=== PATIENT | male | born 1955 | race Caucasian/White ===

== ENCOUNTER 2021-09-11 11:55 | Inpatient (IN) | payer MEDICARE ==
[~2021-09-11 11:55] MED LIST: ISOVUE-370 76%-LOCM 1 ML ONE
[2021-09-11 12:31] LABS: #Lymphocytes 2.1 thou/uL (1.20-3.40); #Monocytes 0.8 thou/uL (0.11-0.59); #Neutrophils 6.9 thou/uL (1.40-6.50); %Basophils 0.4 % (0.0-1.0); %Eosinophils 0.1 % (0.0-10.0); %Lymphocytes 21.5 % (21.0-51.0); %Monocytes 7.7 % (0.0-10.0); %Neutrophils 70.2 % (42.0-75.0); Hemoglobin 14.2 g/dL (14.0-18.0); Mean Corpuscular HGB CONC 32.2 g/dL (32.0-36.0); Mean Corpuscular Hemoglobin 29.7 pg (27.0-31.0); Mean Corpuscular Volume 92.3 fL (78.0-98.0); Platelet Count 307 thou/uL (130-400); RBC Distribution Width 12.9 % (11.5-14.5); Red Blood Cell (RBC) Count 4.77 mill/uL (4.70-6.10); White Blood Cell (WBC) Count 9.8 thou/uL (4.8-10.8)
[2021-09-11] MEDS ORDERED: Dexamethasone 10 MG/ML VIAL ONE (12:44)
[2021-09-11 12:48] LABS: ALT (SGPT) 13 U/L (8-55); AST (SGOT) 18 U/L (5-34); Albumin 3.5 g/dL (3.4-4.8); Alkaline Phosphatase 151 U/L (40-110); Anion Gap 16 mmol/L (10-20); BUN (Urea Nitrogen) 10 mg/dL (8.4-25.7); Bilirubin, Total 0.6 mg/dL (0.2-1.2); Calc. Creatinine Clearance 0 mL/min (70-130); Calcium 9.4 mg/dL (7.8-10.44); Carbon Dioxide 24 mmol/L (23-31); Chloride 100 mmol/L (98-107); Estimated GFR 101; Globulin 4.1 g/dL (2.4-3.5); Glucose 103 mg/dL (80-115); Potassium 4.6 mmol/L (3.5-5.1); Protein, Total 7.6 g/dL (5.8-8.1); Sodium 135 mmol/L (136-145)
[2021-09-11] MEDS ORDERED: Dexamethasone 4 mg/ml Vial SLOW IVP PRN (15:36)
[2021-09-11 16:07] VITALS: BMI 18.6
[2021-09-11] MEDS ORDERED: Acetaminophen 325 MG TAB PO PRN (17:22)
[2021-09-11] MEDS: Dexamethasone 4 mg/ml Vial SLOW IVP SCH ×2 (18:43→23:40)
[2021-09-12] MEDS: Dexamethasone 4 mg/ml Vial SLOW IVP SCH ×4 (05:24→23:42)
[2021-09-12] MEDS: Pantoprazole 40 MG VIAL IVP SCH (08:18)
[2021-09-13] MEDS: Dexamethasone 4 mg/ml Vial SLOW IVP SCH ×4 (05:38→23:48)
[2021-09-13] MEDS: Pantoprazole 40 MG VIAL IVP SCH (08:30)
[2021-09-13 09:08] LABS: Prothrombin Time 13.6 sec (12.0-14.7)
[2021-09-13 09:09] LABS: PTT 29.8 sec (22.9-36.1)
[2021-09-13] MEDS: Melatonin 3 MG TAB PO PRN (20:55)
[2021-09-14] MEDS: Dexamethasone 4 mg/ml Vial SLOW IVP SCH ×4 (05:53→23:07)
[2021-09-14] MEDS: Pantoprazole 40 MG VIAL IVP SCH (08:54)
[2021-09-14] MEDS ORDERED: Docusate 100 MG CAP PO SCH (10:15)
[2021-09-14] MEDS ORDERED: Polyethylene Glycol 3350 17 GM Packet PO SCH (10:15)
[2021-09-14] MEDS ORDERED: Docusate 100 MG CAP PO PRN (10:46)
[2021-09-14] MEDS ORDERED: Polyethylene Glycol 3350 17 GM Packet PO PRN (10:46)
[2021-09-14] MEDS: Melatonin 3 MG TAB PO PRN (23:07)
[2021-09-15] MEDS: Dexamethasone 4 mg/ml Vial SLOW IVP SCH ×3 (05:44→22:15)
[2021-09-15] MEDS: Pantoprazole 40 MG VIAL IVP SCH (09:44)
[2021-09-16] MEDS: Dexamethasone 4 mg/ml Vial SLOW IVP SCH ×3 (06:08→21:39)
[2021-09-16] MEDS: Pantoprazole 40 MG VIAL IVP SCH (07:57)
[2021-09-17] MEDS: Dexamethasone 4 mg/ml Vial SLOW IVP SCH ×3 (06:05→22:00)
[2021-09-17] MEDS: Pantoprazole 40 MG VIAL IVP SCH (09:09)
[2021-09-17] MEDS ORDERED: Acetaminophen 500 MG TAB PO PRN (12:33)
[2021-09-17] MEDS ORDERED: Sodium Chloride 0.9% 1,000 ML IV SCH (12:45)
[2021-09-18] MEDS: Dexamethasone 4 mg/ml Vial SLOW IVP SCH ×2 (06:03→13:38)
[2021-09-18] MEDS: Pantoprazole 40 MG VIAL IVP SCH (08:13)
[2021-09-18 14:12] VITALS: BP 113/69; TEMP 97.9
== END 2021-09-18 14:06 | disposition home or self-care (01) | DRG 70 ==
LOC: ERS 11:55 → NEURO 13:42
PROVIDERS: ADMIT Family Medicine; ATTEND Family Medicine
PROC: 0BBF3ZX Excision of Right Lower Lung Lobe, Percutaneous Approach, Diagnostic (ICD-10-PCS; principal; 2021-09-17)
DX: G93.89 Other specified disorders of brain (principal); G93.41 Metabolic encephalopathy; G93.6 Cerebral edema; E43 Unspecified severe protein-calorie malnutrition; Z68.1 Body mass index [BMI] 19.9 or less, adult; Z20.822 Contact with and (suspected) exposure to COVID-19; Z60.2 Problems related to living alone; K59.00 Constipation, unspecified; R91.8 Other nonspecific abnormal finding of lung field; R00.1 Bradycardia, unspecified; I49.1 Atrial premature depolarization; Z87.891 Personal history of nicotine dependence; Z80.9 Family history of malignant neoplasm, unspecified
CPT/HCPCS: 32408; 36415; 70553; 71045; 71260; 74177; 77012; 80053; 85025; 85610; 85730; 88305; 88333; 88341; 88342; 96374; C9113; J1100; Q9966; U0003; U0005

== ENCOUNTER 2021-09-20 14:18 | Inpatient (IN) | payer MEDICARE ==
[2021-09-20] MEDS ORDERED: diphenhydrAMINE 50 MG/ML VIAL IVP PRN (14:54)
[2021-09-20] MEDS ORDERED: Promethazine 25 MG TAB PO PRN (14:54)
[2021-09-20] MEDS ORDERED: Ondansetron PF 4 MG/2 ML Vial IVP PRN (14:54)
[2021-09-20] MEDS ORDERED: Morphine 2 MG/ML VIAL SLOW IVP PRN (14:54)
[2021-09-20] MEDS ORDERED: Mag-Al 1200 mg/1200 mg/30 ML UDCUP PO PRN (14:54)
[2021-09-20 15:15] LABS: #Basophils 0.1 thou/uL (0.0-0.2); #Lymphocytes 1.8 thou/uL (1.20-3.40); #Monocytes 1.4 thou/uL (0.11-0.59); #Neutrophils 14.7 thou/uL (1.40-6.50); %Basophils 0.3 % (0.0-1.0); %Eosinophils 0.1 % (0.0-10.0); %Lymphocytes 9.9 % (21.0-51.0); %Monocytes 7.7 % (0.0-10.0); %Neutrophils 81.9 % (42.0-75.0); Mean Corpuscular HGB CONC 34.4 g/dL (32.0-36.0); Mean Corpuscular Hemoglobin 31.5 pg (27.0-31.0); Mean Corpuscular Volume 91.6 fL (78.0-98.0); Mean Platelet Volume 8.2 fL (7.4-10.4); Platelet Count 250 thou/uL (130-400); RBC Distribution Width 13.6 % (11.5-14.5); Red Blood Cell (RBC) Count 4.77 mill/uL (4.70-6.10); White Blood Cell (WBC) Count 17.9 thou/uL (4.8-10.8)
[2021-09-20 15:39] LABS: ALT (SGPT) 62 U/L (8-55); AST (SGOT) 24 U/L (5-34); Albumin 3.6 g/dL (3.4-4.8); Alkaline Phosphatase 112 U/L (40-110); Anion Gap 11 mmol/L (10-20); BUN (Urea Nitrogen) 25 mg/dL (8.4-25.7); Bilirubin, Total 0.5 mg/dL (0.2-1.2); Calc. Creatinine Clearance 0 mL/min (70-130); Carbon Dioxide 27 mmol/L (23-31); Chloride 101 mmol/L (98-107); Estimated GFR 95; Globulin 3.2 g/dL (2.4-3.5); Glucose 105 mg/dL (80-115); Protein, Total 6.8 g/dL (5.8-8.1); Sodium 135 mmol/L (136-145)
[2021-09-20 16:41] LABS: SARS-CoV-2 NAA Rapid Test Not Detected (NotDetected)
[2021-09-20] MEDS: Dexamethasone 4 mg/ml Vial SLOW IVP SCH (17:28)
[2021-09-21] MEDS: Dexamethasone 4 mg/ml Vial SLOW IVP SCH ×3 (04:53→23:14)
[2021-09-21] MEDS ORDERED: ceFAZolin 2 GM/Dextrose 50 ML 2 GM in Premix Bag 1 BAG IVPB SCH ×2 (11:00→22:00)
[2021-09-21] MEDS ORDERED: Rocuronium Bromide 10 MG/ML (10ML VIAL) ONE (13:07)
[2021-09-21] MEDS ORDERED: Phenylephrine 10 MG/ML VIAL ONE (13:07)
[2021-09-21] MEDS ORDERED: Lidocaine 1% PF 5 ML VIAL ONE (13:07)
[2021-09-21] MEDS ORDERED: Labetalol HCl 100 MG/20 ML VIAL ONE ×2 (13:07→15:57)
[2021-09-21] MEDS ORDERED: PROPOFOL 200 MG/20 ML VIAL ONE (13:07)
[2021-09-21] MEDS ORDERED: manNITOL 20% 500 ML ONE (13:57)
[2021-09-21] MEDS ORDERED: SUGAMMADEX SODIUM 200 MG/2 ML VIAL ONE (14:49)
[2021-09-21] MEDS ORDERED: Meperidine HCl/PF 25 MG/ML VIAL SLOW IVP PRN (14:53)
[2021-09-21] MEDS ORDERED: Promethazine HCl 25 MG/ML VIAL IVPB PRN (14:53)
[2021-09-21] MEDS ORDERED: HYDROmorphone 2 MG/ML VIAL SLOW IVP PRN (14:53)
[2021-09-21] MEDS ORDERED: fentaNYL Citrate/PF 100 MCG/2 ML SYRINGE ONE ×2 (15:07→18:11)
[2021-09-21] MEDS ORDERED: hydrALAZINE 20 MG/ML VIAL SLOW IVP PRN (15:58)
[2021-09-21] MEDS ORDERED: Labetalol HCl 100 MG/20 ML VIAL SLOW IVP PRN (15:59)
[2021-09-21] MEDS ORDERED: hydrALAZINE 20 MG/ML VIAL ONE (16:33)
[2021-09-21] MEDS: CEFAZOLIN 2 GM in Sodium Chloride 0.9% 100 ML IVPB SCH (23:14)
[2021-09-21] MEDS: Acetaminophen/Codeine 30-300mg Tablet PO PRN (23:46)
[2021-09-22] MEDS: Dexamethasone 4 mg/ml Vial SLOW IVP SCH ×3 (04:26→20:19)
[2021-09-22] MEDS: CEFAZOLIN 2 GM in Sodium Chloride 0.9% 100 ML IVPB SCH (05:08)
[2021-09-22 13:07] LABS: Bacteria/HPF None Seen HPF (None Seen); Bilirubin Negative (Negative); Blood, Urine Negative (Negative); Clarity Clear (Clear); Glucose, Urine (Dipstick) Normal (Negative); Ketone, Urine Negative (Negative); Leukocyte Negative Leu/uL (Negative); Nitrite Negative (Negative); Protein, Urine (Dipstick) Negative (Neg-Trace); RBC/HPF 0-3 HPF (0-3); Specific Gravity, Urine 1.011 (1.002-1.036); Squamous Epithelial None Seen HPF (0-3); Urobilinogen Normal mg/dL (Less than 2); WBC/HPF 0-3 HPF (0-3); pH, Urine 6.5 (5.0-9.0)
[2021-09-22 13:23] LABS: Urine Culture Reflex No No
[2021-09-22] MEDS: Acetaminophen/Codeine 30-300mg Tablet PO PRN (20:25)
[2021-09-23] MEDS: Dexamethasone 4 mg/ml Vial SLOW IVP SCH (03:45)
[2021-09-23 05:45] LABS: #Lymphocytes 1.4 thou/uL (1.20-3.40); #Neutrophils 13.5 thou/uL (1.40-6.50); %Basophils 0.2 % (0.0-1.0); %Eosinophils 0.1 % (0.0-10.0); %Lymphocytes 8.6 % (21.0-51.0); %Neutrophils 85.2 % (42.0-75.0); Mean Corpuscular HGB CONC 32.8 g/dL (32.0-36.0); Mean Corpuscular Hemoglobin 30.1 pg (27.0-31.0); Mean Corpuscular Volume 91.8 fL (78.0-98.0); Platelet Count 211 thou/uL (130-400); RBC Distribution Width 13.9 % (11.5-14.5); Red Blood Cell (RBC) Count 3.98 mill/uL (4.70-6.10); White Blood Cell (WBC) Count 15.9 thou/uL (4.8-10.8)
[2021-09-23 05:59] LABS: Anion Gap 12 mmol/L (10-20); BUN (Urea Nitrogen) 15 mg/dL (8.4-25.7); Calc. Creatinine Clearance 97 mL/min (70-130); Calcium 8.5 mg/dL (7.8-10.44); Carbon Dioxide 27 mmol/L (23-31); Chloride 101 mmol/L (98-107); Estimated GFR 107; Glucose 120 mg/dL (80-115); Potassium 4.1 mmol/L (3.5-5.1); Sodium 136 mmol/L (136-145)
[2021-09-23 06:06] VITALS: BMI 19.8
[2021-09-23] MEDS: Acetaminophen/Codeine 30-300mg Tablet PO PRN (06:27)
[2021-09-23] MEDS ORDERED: Dexamethasone 4 mg/ml Vial SLOW IVP SCH (09:00)
[2021-09-23 13:08] VITALS: BP 121/68; TEMP 98
== END 2021-09-23 15:26 | disposition home health service (06) | DRG 25 ==
LOC: ERS 14:18 → SURG A 16:54 → CCU 09-21 09:54 → SURG A 09-22 22:35
PROVIDERS: ADMIT Physician Assistant; ATTEND Neurological Surgery
PROC: 00B70ZZ Excision of Cerebral Hemisphere, Open Approach (ICD-10-PCS; principal; 2021-09-21)
PROC: 00U20KZ Supplement Dura Mater with Nonautologous Tissue Substitute, Open Approach (ICD-10-PCS; 2021-09-21)
DX: C79.31 Secondary malignant neoplasm of brain (principal); G93.6 Cerebral edema; C34.31 Malignant neoplasm of lower lobe, right bronchus or lung; Z68.1 Body mass index [BMI] 19.9 or less, adult; Z23 Encounter for immunization; Z20.822 Contact with and (suspected) exposure to COVID-19; F17.210 Nicotine dependence, cigarettes, uncomplicated; Z79.899 Other long term (current) drug therapy; R63.4 Abnormal weight loss
CPT/HCPCS: 36415; 80048; 80053; 81001; 85025; 88307; 93005; C1713; J0360; J0690; J1100; J2370; J2704; J3490; J7799; Q4107; U0002

== ENCOUNTER 2021-10-05 11:00 | Outpatient (CLI) | payer MEDICARE | END 2021-10-05 11:01 | disposition home or self-care (01) | LOC: PET 11:00 | PROVIDERS: ATTEND Radiology Radiation Oncology | DX: C34.31 Malignant neoplasm of lower lobe, right bronchus or lung (principal) | CPT/HCPCS: 78815; A9552 ==

== ENCOUNTER 2021-12-29 11:00 | Outpatient (CLI) | payer MEDICARE | END 2021-12-29 11:01 | disposition home or self-care (01) | LOC: PET 11:00 | PROVIDERS: ATTEND Internal Medicine Hematology & Oncology | DX: C34.81 Malignant neoplasm of overlapping sites of right bronchus and lung (principal) | CPT/HCPCS: 78815; A9552 ==

== ENCOUNTER 2021-12-30 12:26 | Outpatient (CLI) | payer MEDICARE ==
[~2021-12-30 12:26] MED LIST changes: +Gadobenate Dimeglumine 529 MG/1 ML (20ML VIAL) ONE; -ISOVUE-370 76%-LOCM 1 ML ONE
== END 2021-12-30 12:27 | disposition home or self-care (01) ==
LOC: SCSMRI 12:26
PROVIDERS: ATTEND Radiology Radiation Oncology
DX: C79.31 Secondary malignant neoplasm of brain (principal); C80.1 Malignant (primary) neoplasm, unspecified; Z98.890 Other specified postprocedural states; Z92.3 Personal history of irradiation
CPT/HCPCS: 70553; A9577

== ENCOUNTER 2022-04-01 10:15 | Outpatient (CLI) | payer MEDICARE | END 2022-04-01 10:16 | disposition home or self-care (01) | LOC: PET 10:15 | PROVIDERS: ATTEND Internal Medicine Hematology & Oncology | DX: C34.81 Malignant neoplasm of overlapping sites of right bronchus and lung (principal); R91.8 Other nonspecific abnormal finding of lung field | CPT/HCPCS: 78815; A9552 ==

== ENCOUNTER 2022-06-29 10:08 | Outpatient (CLI) | payer MEDICARE ==
[2022-06-29] MEDS ORDERED: Magnevist 469MG/ML 20 ML VIAL ONE (15:06)
== END 2022-06-29 10:09 | disposition home or self-care (01) ==
LOC: MRI 10:08
PROVIDERS: ATTEND Radiology Radiation Oncology
DX: C79.31 Secondary malignant neoplasm of brain (principal); Z98.890 Other specified postprocedural states
CPT/HCPCS: 70553

== ENCOUNTER 2022-07-08 08:45 | Outpatient (CLI) | payer MEDICARE | END 2022-07-08 08:46 | LOC: PET 08:45 | PROVIDERS: ATTEND Internal Medicine Hematology & Oncology | DX: C34.81 Malignant neoplasm of overlapping sites of right bronchus and lung (principal); Z79.899 Other long term (current) drug therapy | CPT/HCPCS: 78815; A9552 ==

== ENCOUNTER 2022-10-09 12:53 | Inpatient (IN) | payer MEDICARE ==
[2022-10-09 13:25] LABS: Bacteria/HPF None Seen HPF (None Seen); Bilirubin Negative (Negative); Blood, Urine Negative (Negative); CAUTI Indications for Culture Alt mental st,lethar; Clarity Clear (Clear); Glucose, Urine (Dipstick) Normal (Negative); Ketone, Urine 40 mg/dL (Negative); Leukocyte Negative Leu/uL (Negative); Nitrite Negative (Negative); Protein, Urine (Dipstick) Negative (Neg-Trace); RBC/HPF 0-3 HPF (0-3); Specific Gravity, Urine 1.009 (1.002-1.036); Squamous Epithelial 0-3 HPF (0-3); Urobilinogen Normal mg/dL (Less than 2); WBC/HPF 0-3 HPF (0-3)
[2022-10-09 13:28] LABS: Amphetamine Not Detected (NotDetected); Barbiturates Screen Not Detected (NotDetected); Benzodiazepine Screen Not Detected (NotDetected); Cocaine Metabolite Screen Not Detected (NotDetected); Methadone Not Detected (NotDetected); Methamphetamine Not Detected (NotDetected); Opiate Screen Not Detected (NotDetected); Oxycodone Screen Not Detected (NotDetected); Phencyclidine (PCP) Not Detected (NotDetected); THC/Cannabinoid Screen Detected (NotDetected); Tricyclic Screen Not Detected (NotDetected)
[2022-10-09 13:29] LABS: Urine Culture Reflex No No
[2022-10-09 13:32] LABS: #Eosinphils 0.1 thou/uL (0.0-0.7); #Monocytes 0.8 thou/uL (0.11-0.59); #Neutrophils 7.4 thou/uL (1.40-6.50); %Basophils 0.4 % (0.0-1.0); %Eosinophils 0.5 % (0.0-10.0); %Lymphocytes 14.8 % (21.0-51.0); %Monocytes 7.9 % (0.0-10.0); %Neutrophils 76.1 % (42.0-75.0); Hematocrit 43.9 % (42.0-52.0); Hemoglobin 14.7 g/dL (14.0-18.0); Mean Corpuscular HGB CONC 33.5 g/dL (32.0-36.0); Mean Corpuscular Hemoglobin 32.3 pg (27.0-31.0); Mean Corpuscular Volume 96.5 fl (78.0-98.0); Mean Platelet Volume 10.1 fL (7.4-10.4); Platelet Count 203 10x3/uL (130-400); RBC Distribution Width 12.7 % (11.5-14.5); Red Blood Cell (RBC) Count 4.55 mill/uL (4.70-6.10); White Blood Cell (WBC) Count 9.7 10x3/uL (4.8-10.8)
[2022-10-09 13:54] LABS: ALT (SGPT) 17 U/L (8-55); AST (SGOT) 20 U/L (5-34); Albumin 4.6 g/dL (3.4-4.8); Alkaline Phosphatase 87 U/L (40-110); Anion Gap 15 mmol/L (10-20); BUN (Urea Nitrogen) 15 mg/dL (8.4-25.7); Bilirubin, Total 0.8 mg/dL (0.2-1.2); Calc. Creatinine Clearance 0 mL/min (70-130); Calcium 10.2 mg/dL (7.8-10.44); Carbon Dioxide 26 mmol/L (23-31); Chloride 104 mmol/L (98-107); Estimated GFR 94; Globulin 2.5 g/dL (2.4-3.5); Glucose 101 mg/dL (80-115); Potassium 4.8 mmol/L (3.5-5.1); Protein, Total 7.1 g/dL (5.8-8.1); Sodium 140 mmol/L (136-145)
[2022-10-09] MEDS ORDERED: Multivitamins, Adult 10 ML, Thiamine HCl 100 MG, Folic Acid 1 MG in Dextrose 5 %-0.45 %... IV SCH (14:00)
[2022-10-09 14:07] LABS: Acetaminophen Less than 10 mcg/mL (10.0-30.0); Alcohol Less than 10.0 mg/dL (Less than 10); Salicylate Less than 8.0 mg/dL (15.0-30.0)
[2022-10-09] MEDS ORDERED: Dexamethasone 10 MG/ML VIAL SLOW IVP SCH (15:30)
[2022-10-09 17:12] LABS: Troponin I Less than 0.010 ng/mL (< 0.028)
[2022-10-09] MEDS ORDERED: Ondansetron PF 4 MG/2 ML Vial IVP PRN (18:06)
[2022-10-09] MEDS ORDERED: Acetaminophen 325 MG TAB PO PRN (18:06)
[2022-10-09 19:03] VITALS: BMI 22.9
[2022-10-09 19:58] LABS: Troponin I 0.011 ng/mL (< 0.028)
[2022-10-09] MEDS: Dexamethasone 4 mg/ml Vial SLOW IVP SCH (21:32)
[2022-10-10] MEDS: Dexamethasone 4 mg/ml Vial SLOW IVP SCH ×4 (02:37→18:40)
[2022-10-10 04:24] LABS: #Monocytes 0.1 thou/uL (0.11-0.59); #Neutrophils 4.2 thou/uL (1.40-6.50); %Basophils 0.2 % (0.0-1.0); %Lymphocytes 14.8 % (21.0-51.0); %Monocytes 1.4 % (0.0-10.0); %Neutrophils 83.2 % (42.0-75.0); Hematocrit 41.5 % (42.0-52.0); Hemoglobin 13.9 g/dL (14.0-18.0); Mean Corpuscular HGB CONC 33.5 g/dL (32.0-36.0); Mean Corpuscular Hemoglobin 31.8 pg (27.0-31.0); Mean Platelet Volume 10.2 fL (7.4-10.4); Platelet Count 189 10x3/uL (130-400); RBC Distribution Width 12.7 % (11.5-14.5); Red Blood Cell (RBC) Count 4.37 mill/uL (4.70-6.10)
[2022-10-10 04:58] LABS: Anion Gap 13 mmol/L (10-20); BUN (Urea Nitrogen) 12 mg/dL (8.4-25.7); Calc. Creatinine Clearance 80 mL/min (70-130); Calcium 9.8 mg/dL (7.8-10.44); Carbon Dioxide 25 mmol/L (23-31); Chloride 106 mmol/L (98-107); Estimated GFR 97; Glucose 149 mg/dL (80-115); Potassium 4.6 mmol/L (3.5-5.1); Sodium 139 mmol/L (136-145)
[2022-10-10] MEDS: Pantoprazole 40 MG VIAL IVP SCH (09:06)
[2022-10-10] MEDS ORDERED: Magnevist 469MG/ML 20 ML VIAL ONE (12:02)
[2022-10-11] MEDS: Dexamethasone 4 mg/ml Vial SLOW IVP SCH ×5 (00:15→23:52)
[2022-10-11 05:03] LABS: #Monocytes 0.5 thou/uL (0.11-0.59); #Neutrophils 11.3 thou/uL (1.40-6.50); %Basophils 0.2 % (0.0-1.0); %Lymphocytes 8.7 % (21.0-51.0); %Monocytes 4.1 % (0.0-10.0); %Neutrophils 86.4 % (42.0-75.0); Hematocrit 39.6 % (42.0-52.0); Hemoglobin 13.2 g/dL (14.0-18.0); Mean Corpuscular HGB CONC 33.3 g/dL (32.0-36.0); Mean Corpuscular Hemoglobin 32.1 pg (27.0-31.0); Mean Corpuscular Volume 96.4 fl (78.0-98.0); Mean Platelet Volume 10.6 fL (7.4-10.4); Platelet Count 187 10x3/uL (130-400); RBC Distribution Width 12.7 % (11.5-14.5); Red Blood Cell (RBC) Count 4.11 mill/uL (4.70-6.10)
[2022-10-11] MEDS: Pantoprazole 40 MG VIAL IVP SCH (08:32)
[2022-10-11] MEDS: levETIRAcetam 500 MG TAB PO SCH ×2 (09:35→21:45)
[2022-10-12 04:38] LABS: #Monocytes 0.4 thou/uL (0.11-0.59); #Neutrophils 10.3 thou/uL (1.40-6.50); %Lymphocytes 6.4 % (21.0-51.0); %Monocytes 3.3 % (0.0-10.0); %Neutrophils 89.7 % (42.0-75.0); Hemoglobin 14.1 g/dL (14.0-18.0); Mean Corpuscular HGB CONC 33.6 g/dL (32.0-36.0); Mean Corpuscular Hemoglobin 32.3 pg (27.0-31.0); Mean Corpuscular Volume 96.1 fl (78.0-98.0); Mean Platelet Volume 10.6 fL (7.4-10.4); Platelet Count 212 10x3/uL (130-400); RBC Distribution Width 12.8 % (11.5-14.5); Red Blood Cell (RBC) Count 4.37 mill/uL (4.70-6.10); White Blood Cell (WBC) Count 11.5 10x3/uL (4.8-10.8)
[2022-10-12 04:57] LABS: Anion Gap 16 mmol/L (10-20); BUN (Urea Nitrogen) 26 mg/dL (8.4-25.7); Calc. Creatinine Clearance 65 mL/min (70-130); Calcium 9.7 mg/dL (7.8-10.44); Carbon Dioxide 22 mmol/L (23-31); Chloride 105 mmol/L (98-107); Estimated GFR 85; Glucose 158 mg/dL (80-115); Potassium 4.1 mmol/L (3.5-5.1); Sodium 139 mmol/L (136-145)
[2022-10-12] MEDS: Dexamethasone 4 mg/ml Vial SLOW IVP SCH ×4 (06:21→23:41)
[2022-10-12] MEDS: levETIRAcetam 500 MG TAB PO SCH ×2 (09:55→22:17)
[2022-10-12] MEDS: Pantoprazole 40 MG VIAL IVP SCH (09:56)
[2022-10-12] MEDS: traZODone HCl 50 MG TAB PO PRN (22:18)
[2022-10-13] MEDS: Dexamethasone 4 mg/ml Vial SLOW IVP SCH ×3 (05:35→18:20)
[2022-10-13] MEDS ORDERED: Iopamidol 370 76% 100 ML VIAL ONE (08:39)
[2022-10-13] MEDS: levETIRAcetam 500 MG TAB PO SCH ×2 (09:43→19:58)
[2022-10-13] MEDS: Pantoprazole 40 MG VIAL IVP SCH (09:43)
[2022-10-13] MEDS: Lorazepam 0.5 MG TAB PO PRN ×2 (14:03→19:58)
[2022-10-14] MEDS: Dexamethasone 4 mg/ml Vial SLOW IVP SCH ×5 (00:37→23:58)
[2022-10-14] MEDS: Pantoprazole 40 MG VIAL IVP SCH (09:34)
[2022-10-14] MEDS: levETIRAcetam 500 MG TAB PO SCH ×2 (09:34→20:41)
[2022-10-14] MEDS: Lorazepam 0.5 MG TAB PO PRN (20:41)
[2022-10-14] MEDS: traZODone HCl 50 MG TAB PO PRN (23:58)
[2022-10-15] MEDS: Dexamethasone 4 mg/ml Vial SLOW IVP SCH ×3 (05:46→19:30)
[2022-10-15] MEDS: levETIRAcetam 500 MG TAB PO SCH ×2 (07:33→20:43)
[2022-10-15] MEDS: Pantoprazole 40 MG VIAL IVP SCH (07:33)
[2022-10-16] MEDS: Dexamethasone 4 mg/ml Vial SLOW IVP SCH ×4 (00:09→18:22)
[2022-10-16 04:39] LABS: #Basophils 0.1 thou/uL (0.0-0.2); #Eosinphils 0.2 thou/uL (0.0-0.7); #Monocytes 0.9 thou/uL (0.11-0.59); #Neutrophils 11.9 thou/uL (1.40-6.50); %Basophils 0.4 % (0.0-1.0); %Eosinophils 1.1 % (0.0-10.0); %Lymphocytes 6.5 % (21.0-51.0); %Neutrophils 83.3 % (42.0-75.0); Hemoglobin 14.4 g/dL (14.0-18.0); Mean Corpuscular HGB CONC 32.7 g/dL (32.0-36.0); Mean Corpuscular Hemoglobin 31.6 pg (27.0-31.0); Mean Corpuscular Volume 96.5 fl (78.0-98.0); Mean Platelet Volume 10.3 fL (7.4-10.4); Platelet Count 217 10x3/uL (130-400); RBC Distribution Width 12.8 % (11.5-14.5); Red Blood Cell (RBC) Count 4.56 mill/uL (4.70-6.10); White Blood Cell (WBC) Count 14.3 10x3/uL (4.8-10.8)
[2022-10-16 05:06] LABS: Anion Gap 11 mmol/L (10-20); BUN (Urea Nitrogen) 24 mg/dL (8.4-25.7); Calc. Creatinine Clearance 72 mL/min (70-130); Calcium 8.8 mg/dL (7.8-10.44); Carbon Dioxide 27 mmol/L (23-31); Chloride 100 mmol/L (98-107); Estimated GFR 94; Glucose 127 mg/dL (80-115); Potassium 4.4 mmol/L (3.5-5.1); Sodium 134 mmol/L (136-145)
[2022-10-16] MEDS: levETIRAcetam 500 MG TAB PO SCH ×2 (08:07→20:11)
[2022-10-16] MEDS: Pantoprazole 40 MG VIAL IVP SCH (08:08)
[2022-10-17] MEDS: Dexamethasone 4 mg/ml Vial SLOW IVP SCH ×2 (01:05→06:43)
[2022-10-17] MEDS: Amlodipine 5 MG TAB PO SCH (09:09)
[2022-10-17] MEDS: levETIRAcetam 500 MG TAB PO SCH ×2 (09:09→20:39)
[2022-10-17] MEDS: Dexamethasone 4 MG TAB PO SCH ×3 (13:25→20:40)
[2022-10-17] MEDS: Lorazepam 0.5 MG TAB PO PRN (20:40)
[2022-10-17] MEDS ORDERED: Benzonatate 100 MG CAP PO PRN (21:44)
[2022-10-17] MEDS ORDERED: GUAIFENESIN SF SOLN 200 MG/10 ML UDCUP PO PRN (21:44)
[2022-10-17] MEDS ORDERED: Ondansetron PF 4 MG/2 ML Vial IVP SCH (22:00)
[2022-10-17] MEDS ORDERED: Ipratropium/Albuterol 3 ML NEB NEB SCH (22:15)
[2022-10-18] MEDS: levETIRAcetam 500 MG TAB PO SCH (09:18)
[2022-10-18] MEDS: Amlodipine 5 MG TAB PO SCH (09:18)
[2022-10-18] MEDS: Dexamethasone 4 MG TAB PO SCH ×2 (09:18→12:55)
[2022-10-18 12:13] VITALS: BP 153/74; TEMP 97.9
== END 2022-10-18 15:21 | DRG 64 ==
LOC: ERS 12:53 → 2SE 15:02 → OBSVTOIN 10-11 14:14 → 2SE 10-11 15:45
PROVIDERS: ADMIT Internal Medicine; ATTEND Family Medicine
DX: I61.8 Other nontraumatic intracerebral hemorrhage (principal); G93.41 Metabolic encephalopathy; G93.6 Cerebral edema; C79.31 Secondary malignant neoplasm of brain; C34.90 Malignant neoplasm of unspecified part of unspecified bronchus or lung; R47.01 Aphasia; R13.10 Dysphagia, unspecified; I10 Essential (primary) hypertension; F12.10 Cannabis abuse, uncomplicated; R47.02 Dysphasia; Z79.899 Other long term (current) drug therapy; Z87.891 Personal history of nicotine dependence
CPT/HCPCS: 36415; 70450; 70553; 77014; 77300; 77301; 77334; 77338; 77372; 80048; 80053; 80306; 80307; 81001; 82140; 84484; 85025; 93005; 96365; 96366; 96375; 96376; A9579; C9113; G0378; J1100; J3411; J7042; J8540; Q9967

== ENCOUNTER 2022-10-21 10:16 | Inpatient (IN) | payer MEDICARE ==
[2022-10-21 11:10] LABS: #Monocytes 0.8 thou/uL (0.11-0.59); #Neutrophils 11.1 thou/uL (1.40-6.50); %Basophils 0.1 % (0.0-1.0); %Eosinophils 0.1 % (0.0-10.0); %Lymphocytes 9.7 % (21.0-51.0); %Monocytes 6.3 % (0.0-10.0); %Neutrophils 82.9 % (42.0-75.0); Hematocrit 47.3 % (42.0-52.0); Mean Corpuscular HGB CONC 33.8 g/dL (32.0-36.0); Mean Corpuscular Hemoglobin 32.1 pg (27.0-31.0); Mean Platelet Volume 9.5 fL (7.4-10.4); Platelet Count 160 10x3/uL (130-400); RBC Distribution Width 13.1 % (11.5-14.5); Red Blood Cell (RBC) Count 4.98 mill/uL (4.70-6.10); White Blood Cell (WBC) Count 13.4 10x3/uL (4.8-10.8)
[2022-10-21 11:33] LABS: ALT (SGPT) 47 U/L (8-55); AST (SGOT) 24 U/L (5-34); Albumin 3.5 g/dL (3.4-4.8); Alkaline Phosphatase 58 U/L (40-110); Anion Gap 13 mmol/L (10-20); BUN (Urea Nitrogen) 24 mg/dL (8.4-25.7); Bilirubin, Total 0.9 mg/dL (0.2-1.2); Calc. Creatinine Clearance 0 mL/min (70-130); Calcium 8.6 mg/dL (7.8-10.44); Carbon Dioxide 27 mmol/L (23-31); Chloride 101 mmol/L (98-107); Estimated GFR 93; Globulin 2.6 g/dL (2.4-3.5); Glucose 91 mg/dL (80-115); Potassium 4.1 mmol/L (3.5-5.1); Protein, Total 6.1 g/dL (5.8-8.1); Sodium 137 mmol/L (136-145)
[2022-10-21 11:52] LABS: Troponin I Less than 0.010 ng/mL (< 0.028)
[2022-10-21] MEDS ORDERED: Dexamethasone 4 mg/ml Vial ONE (13:21)
[2022-10-21 13:39] LABS: Acetaminophen Less than 10 mcg/mL (10.0-30.0); Alcohol Less than 10.0 mg/dL (Less than 10); Lipase 53 U/L (8-78); Magnesium 2.5 mg/dL (1.6-2.6); Salicylate Less than 8.0 mg/dL (15.0-30.0)
[2022-10-21 16:01] VITALS: BMI 19.2
[2022-10-21] MEDS: Dexamethasone 4 mg/ml Vial SLOW IVP SCH ×2 (17:30→23:26)
[2022-10-21] MEDS: levETIRAcetam 500 MG TAB PO SCH (21:31)
[2022-10-22 04:10] LABS: Amphetamine Not Detected (NotDetected); Barbiturates Screen Not Detected (NotDetected); Benzodiazepine Screen Not Detected (NotDetected); Cocaine Metabolite Screen Not Detected (NotDetected); Methadone Not Detected (NotDetected); Methamphetamine Not Detected (NotDetected); Opiate Screen Not Detected (NotDetected); Oxycodone Screen Not Detected (NotDetected); Phencyclidine (PCP) Not Detected (NotDetected); THC/Cannabinoid Screen Detected (NotDetected); Tricyclic Screen Not Detected (NotDetected)
[2022-10-22 04:13] LABS: Bacteria/HPF None Seen HPF (None Seen); Bilirubin Negative (Negative); Blood, Urine Negative (Negative); CAUTI Indications for Culture Alt mental st,lethar; Clarity Clear (Clear); Glucose, Urine (Dipstick) 70 mg/dL (Negative); Ketone, Urine Negative (Negative); Leukocyte Negative Leu/uL (Negative); Nitrite Negative (Negative); Protein, Urine (Dipstick) Negative (Neg-Trace); RBC/HPF 0-3 HPF (0-3); Specific Gravity, Urine 1.024 (1.002-1.036); Squamous Epithelial 0-3 HPF (0-3)
[2022-10-22 04:15] LABS: Urine Culture Reflex No No
[2022-10-22] MEDS: Dexamethasone 4 mg/ml Vial SLOW IVP SCH ×4 (05:35→23:13)
[2022-10-22 06:55] LABS: #Monocytes 0.2 thou/uL (0.11-0.59); #Neutrophils 11.8 thou/uL (1.40-6.50); %Basophils 0.1 % (0.0-1.0); %Lymphocytes 5.5 % (21.0-51.0); %Monocytes 1.6 % (0.0-10.0); %Neutrophils 92.2 % (42.0-75.0); Hematocrit 44.3 % (42.0-52.0); Mean Corpuscular HGB CONC 33.9 g/dL (32.0-36.0); Mean Corpuscular Hemoglobin 32.4 pg (27.0-31.0); Mean Corpuscular Volume 95.7 fl (78.0-98.0); Mean Platelet Volume 10.3 fL (7.4-10.4); Platelet Count 127 10x3/uL (130-400); RBC Distribution Width 13.1 % (11.5-14.5); Red Blood Cell (RBC) Count 4.63 mill/uL (4.70-6.10); White Blood Cell (WBC) Count 12.8 10x3/uL (4.8-10.8)
[2022-10-22 07:23] LABS: Anion Gap 11 mmol/L (10-20); BUN (Urea Nitrogen) 23 mg/dL (8.4-25.7); Calc. Creatinine Clearance 81 mL/min (70-130); Calcium 8.6 mg/dL (7.8-10.44); Carbon Dioxide 25 mmol/L (23-31); Chloride 104 mmol/L (98-107); Estimated GFR 99; Glucose 132 mg/dL (80-115); Potassium 4.5 mmol/L (3.5-5.1); Sodium 135 mmol/L (136-145)
[2022-10-22] MEDS: levETIRAcetam 500 MG TAB PO SCH ×2 (08:36→20:24)
[2022-10-22] MEDS ORDERED: levETIRAcetam 500 MG TAB PO SCH (12:45)
[2022-10-22] MEDS ORDERED: Lorazepam 2 MG/ML VIAL SLOW IVP SCH (13:00)
[2022-10-22] MEDS ORDERED: levETIRAcetam 500 MG/5 ML VIAL SLOW IVP SCH (13:00)
[2022-10-22] MEDS ORDERED: Lacosamide 200 MG in Sodium Chloride 0.9% 50 ML IVPB SCH ×2 (13:00→21:00)
[2022-10-22] MEDS: Lacosamide 50 mg Tablet PO SCH (20:24)
[2022-10-23] MEDS: Dexamethasone 4 mg/ml Vial SLOW IVP SCH ×3 (05:10→17:13)
[2022-10-23] MEDS: Lacosamide 50 mg Tablet PO SCH ×2 (07:49→20:23)
[2022-10-23] MEDS: levETIRAcetam 500 MG TAB PO SCH ×2 (07:49→20:22)
[2022-10-24] MEDS: Dexamethasone 4 mg/ml Vial SLOW IVP SCH ×4 (00:02→18:42)
[2022-10-24 04:02] LABS: #Monocytes 0.5 thou/uL (0.11-0.59); #Neutrophils 12.4 thou/uL (1.40-6.50); %Basophils 0.1 % (0.0-1.0); %Lymphocytes 4.6 % (21.0-51.0); %Monocytes 3.5 % (0.0-10.0); %Neutrophils 90.8 % (42.0-75.0); Hematocrit 41.9 % (42.0-52.0); Hemoglobin 14.3 g/dL (14.0-18.0); Mean Corpuscular HGB CONC 34.1 g/dL (32.0-36.0); Mean Corpuscular Volume 93.7 fl (78.0-98.0); Mean Platelet Volume 10.1 fL (7.4-10.4); Red Blood Cell (RBC) Count 4.47 mill/uL (4.70-6.10); White Blood Cell (WBC) Count 13.6 10x3/uL (4.8-10.8)
[2022-10-24 04:09] LABS: Platelet Count 108 10x3/uL (130-400)
[2022-10-24 04:28] LABS: Anion Gap 9 mmol/L (10-20); BUN (Urea Nitrogen) 20 mg/dL (8.4-25.7); Calc. Creatinine Clearance 77 mL/min (70-130); Calcium 8.5 mg/dL (7.8-10.44); Carbon Dioxide 26 mmol/L (23-31); Chloride 105 mmol/L (98-107); Estimated GFR 98; Glucose 118 mg/dL (80-115); Potassium 4.4 mmol/L (3.5-5.1); Sodium 136 mmol/L (136-145)
[2022-10-24] MEDS: levETIRAcetam 500 MG TAB PO SCH (09:12)
[2022-10-24] MEDS: Lacosamide 50 mg Tablet PO SCH (09:13)
[2022-10-24] MEDS ORDERED: hydrALAZINE 20 MG/ML VIAL SLOW IVP PRN (15:45)
[2022-10-24 16:05] VITALS: BP 187/78
[2022-10-24 16:13] VITALS: TEMP 97.7
[2022-10-25] MEDS ORDERED: Amlodipine 5 MG TAB PO SCH (09:00)
== END 2022-10-24 19:15 | disposition short-term general hospital (02) | DRG 80 ==
LOC: ERS 10:16 → ERHOLD 13:26 → T4-A 14:33 → ERHOLD 14:41 → T4-A 15:49 → OBSVTOIN 10-22 12:34 → IMCU/EMU 10-22 14:03
PROVIDERS: ADMIT Internal Medicine; ATTEND Internal Medicine
DX: G93.6 Cerebral edema (principal); G92.8 Other toxic encephalopathy; I61.9 Nontraumatic intracerebral hemorrhage, unspecified; C79.31 Secondary malignant neoplasm of brain; C34.90 Malignant neoplasm of unspecified part of unspecified bronchus or lung; Z51.5 Encounter for palliative care; I10 Essential (primary) hypertension; F17.210 Nicotine dependence, cigarettes, uncomplicated; R74.02 Elevation of levels of lactic acid dehydrogenase [LDH]; Z79.899 Other long term (current) drug therapy; Z91.148 Patient's other noncompliance with medication regimen for other reason
CPT/HCPCS: 36415; 36416; 51701; 70450; 71045; 80048; 80053; 80306; 80307; 81001; 83690; 83735; 84443; 84484; 85025; 93005; 93010; 95816; 95819; 95957; 96374; 96376; C9254; G0378; J0360; J1100; J1953; J2060